=== PATIENT | male | born 1940 | race Caucasian/White ===

== ENCOUNTER → 2024-02-11 05:00 | Outpatient (REF) | payer MEDICARE, SELFPAY ==
[2024-02-11 09:13] LABS: Valproic Acid (Depakene) Level 16 ug/mL (50-100)
== END ==
LOC: OLS.SW 05:00
PROVIDERS: PCP Internal Medicine; Visit Provider Internal Medicine
DX: E03.9 Hypothyroidism, unspecified (principal); Z51.81 Encounter for therapeutic drug level monitoring
CPT/HCPCS: 36415; 80164; 84443

== ENCOUNTER 2024-02-22 03:42 | Emergency (ER) | payer MEDICARE, SELFPAY ==
[2024-02-22 03:43] VITALS: BP 124/50; PULSE 78; RESP 16; TEMP 36.6; O2SAT 94; BMI 25.2
--- NOTE | 2024-02-22 04:09 | CT_ITS ---
INDICATION: fall EXAMINATION: CT BRAIN - CT Head or Brain W/O Contrast Injection TECHNIQUE: Multiple axial images were obtained of the head without intravenous contrast. A radiation dose optimization technique was used for this scan. IV Contrast dosage and agent: None. RADIATION DOSAGE (If Supplied By Facility): CTDIvol = ( 44.99 ) mGy, DLP = ( 829.85 ) mGycm COMPARISON: No relevant prior comparison study available FINDINGS: BRAIN PARENCHYMA: No intra- or extra-axial hemorrhage. No evidence of acute infarct. No intracranial mass or mass effect. There is preservation of the dean/white matter interface. Posterior fossa structures are unremarkable. Patchy periventricular and deep white matter hypoattenuation is consistent with mild small vessel ischemic change. CSF SPACES: Proportional prominence of the ventricles and sulcal spaces is consistent with mild cerebral volume loss. No hydrocephalus. Basal cisterns are patent. CALVARIUM, SKULL BASE, PARANASAL SINUSES AND MASTOID AIR CELLS: Regional soft tissues and scalp unremarkable. Calvarium and skull base are intact. Paranasal sinuses are clear. Mastoid air cells are clear. No discrete lytic or blastic abnormalities. ORBITS: Both globes, extraocular muscles, optic nerves and retrobulbar fat appear unremarkable. CT/Brain/Head without Contrast IMPRESSION: No acute intracranial finding. Electronically Signed: Jim Al MD at 5:54 EDT ,
--- NOTE | 2024-02-22 04:10 | EDS_ITS ---
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 They found him assisted in his bed and assisted out, with his head down at the floor, and a couple of new skin tears on his left wrist and hand to go along with his other skin tears that are between a week and 2 old. Patient denies any fall. He denies having any pain right now or any other issues. Denies a headache. He has a tube which appears to be some type of drain in his right upper quadrant states he received it at [facility] and is not sure why. [facility] Medical History (Updated 02/22/24 @ 05:[address] Shiraz Sanches MD) Anxiety Ascites Atrial fibrillation CHF (congestive heart failure) CKD (chronic kidney disease) Dialysis AV fistula malfunction Social History Smoking Status: Never smoker ROS ROS ED Review of Systems ROS Unobtainable: due to encephalopathy Eyes Eyes: Denies change in vision or diplopia ENT ENT ED: Denies sore throat Cardiovascular Cardiovascular: Denies chest pain or palpitations Respiratory/Chest Respiratory/Chest: Denies cough or dyspnea Gastrointestinal Gastrointestinal: Denies abdominal pain, nausea or vomiting Musculoskeletal Musculoskeletal: Denies back pain or neck pain Integumentary Denies abscess or rash Neurologic Neurologic: Denies headache(s), paresthesias or weakness Psychiatric Psychiatric: Denies suicidal ideation or suicidal thoughts EXAM Physical Exam Const Vital Signs: 02/22/24 03:43 02/22/24 03:52 02/22/24 04:13 Temperature 97.9 F Temperature Source Temporal Pulse Rate 78 70 Respiratory Rate 16 16 Respiratory Effort Normal Blood Pressure 124/50 H 118/76 Blood Pressure Mean 74 90 Pulse Ox 94 Oxygen Delivery Method Room Air Room Air Positive well nourished and well developed General Appearance ED: well developed and NAD HEENT Reports moist mucous membranes HEENT Narrative: Minor abrasion that is scabbed on his frontal scalp unclear if this is acute or not, there are no other signs of acute trauma to the HEENT area. normocephalic and atraumatic Eyes PERRL and EOMs intact bilaterally Neck full ROM and supple Chest Wall Chest Narrative: Chronic deformity to the right sternoclavicular joint, no tenderness. Resp normal respiratory effort and clear to auscultation bilaterally Cardio regular rate and regular rhythm GI non-tender and non-distended GI Narrative: Drain tube sutured into right upper quadrant, site is benign, there is no discharge around the tube. Auscultation: normoactive bowel sounds Palpation: soft Back/Spine no CVA tenderness General Back: other FROM Extremity normal to inspection Extremity Narrative: Skin tears throughout both upper extremities of varying ages, only 1 on the left wrist and 1 on the left hand appear to be acute. No signs of any infection on any of them. Dressings noted. Full range of motion throughout all joints of all 4 extremities without any pain. AVF LUE good thrill and distal pulse. General Extremety ED: Negative for edema, pulses abnormal or tenderness General Extremity: Negative for edema or pulses abnormal Neuro CN's II-XII intact bilaterally and no sensory deficits noted [place] Coma Scale: document GCS findings Spontaneous Obeys Commands Confused 14 Sensorium / Orientation: awake, alert, oriented to person and orientation impaired; Negative for oriented to place or oriented to time Motor Exam: strength 5/5 throughout Psych Psych Narrative: flat affect; frustrated/angry that he is here in ED. Skin Rashes: no rashes MDM MDM MDM Narrative Medical decision making narrative: Not sure if this is a choley tube or what is going on, we do not have any records of what he has or why it is there, but his abdomen is benign so I do not think it needs emergent imaging right now it does not appear to be traumatized. The tube is not hooked up like a pneumothorax. I did perform CT imaging of his brain, given the fact that he had a history of fall, was found headfirst into the floor with the lower half of his body up in his bed, and he has an abrasion on the scalp, unknown if this is acute or not, but given that he is little disoriented I thought it appropriate to scan his head and rule out intracranial injury. I reviewed the images and the report which I agree with, it is negative for any acute. Basic labs are obtained and reviewed. These are similar to old. His skin tears were cleansed and dressed with bacitracin. Labs reviewed which show chronic kidney disease, he does not have any acute or emergent electrolyte disorder, and it is confirmed he is a dialysis patient. I do not think he needs any extremity imaging at this time, and is stable to go back to the long-term. Lab Data Attestation: I reviewed the patient's lab results. Labs: Laboratory Results - last 24 hr 02/22/24 05:15 WBC 9.1 RBC 3.93 L Hgb 11.7 L Hct 37.6 L MCV 95.7 H MCH 29.8 MCHC 31.1 L RDW Std Deviation 56.9 H RDW Coeff of Brad 16.2 H Plt Count 222 MPV 9.6 Immature Gran % (Auto) 0.200 Neut % (Auto) 72.4 H Lymph % (Auto) 12.6 L [place] % (Auto) 10.1 H Eos % (Auto) 3.9 Baso % (Auto) 0.8 Absolute Neuts (auto) 6.6 Absolute Lymphs (auto) 1.14 Nucleated RBC % 0 Sodium 131 L Potassium 4.4 Chloride 97 L Carbon Dioxide 25.0 Anion Gap 9 BUN 46 H Creatinine 5.47 H Estim Creat Clear Calc 10.25 Est GFR (MDRD) Af Amer 13 L Est GFR (MDRD) Non-Af 11 L BUN/Creatinine Ratio 8.4 L Glucose 100 Calcium 8.8 Radiography Diagnostic Testing: Clinical Impression(s) from Imaging Studies Brain CT 02/22/24 04:09 IMPRESSION: No acute intracranial finding. Electronically Signed: Jim Al MD at 5:54 EDT Reading Location ID and State: [address] [place] [address] Tel , Service support , Discharge Plan Triage Chief Complaint: Fall ED Provider: Shiraz Sanches Dx/Rx/DC Orders Clinical Impression: Accidental fall from bed, Closed head injury, Skin tear of left upper extremity, ESRD on dialysis Instructions: ED Head Injury (Adult) Primary Care Provider: Carlota Goodwin Referrals: Carlota Goodwin MD [Primary Care Provider] - 1-2 Days if not improving Disposition Disposition: [facility]
[2024-02-22 04:13] VITALS: BP 118/76; PULSE 70; RESP 16
[2024-02-22 05:26] LABS: Absolute Lymphocyte Count 1.14 X10^3/uL (0.83-4.51); Absolute Neutrophil Count 6.6 X10^3/uL (2.0-7.7); Basophil# 0.07 X10^3/uL; Basophil% 0.8 % (0-1); Eosinophil# 0.35 X10^3/uL; Eosinophils% 3.9 % (0-5); Hematocrit 37.6 % (40-54); Hemoglobin 11.7 g/dL (13.0-16.5); Lymphocyte # 1.14 X10^3/ul (0.83-4.51); Lymphocyte % 12.6 % (19-41); Mean Corp Hgb Conc 31.1 g/dL (32-36); Mean Corpuscular Hgb 29.8 pg (27.0-32.0); Mean Corpuscular Volume 95.7 fL (80-94); Mean Platelet Vol. 9.6 fl (6.2-12.0); Monocyte# 0.91 X10^3/uL; Monocyte% 10.1 % (0-10); NRBC Flagged by Analyzer 0 % (0-5); Neutrophil # 6.56 X10^3/uL (2.7-7.7); Neutrophil % 72.4 % (47-70); Platelet Count 222 K/mm3 (150-450); RBC Distribution Width CV 16.2 % (11.6-14.6); RBC Distribution Width SD 56.9 fl (35.1-43.9); Red Blood Count 3.93 M/mm3 (4.6-6.2); White Blood Count 9.1 K/mm3 (4.4-11.0)
[2024-02-22 05:46] LABS: Anion Gap 9 (5-15); BUN 46 mg/dL (7-18); BUN/Creat Ratio 8.4 RATIO (10-20); Calcium,Total 8.8 mg/dL (8.5-10.1); Chloride 97 mmol/L (98-107); Creatinine, Serum 5.47 mg/dL (0.70-1.30); EST Glomerular Filtration Rate 11 mL/min (>60); Est Glom Filt Rate - Afr Amer 13 mL/min (>60); Estimated Creatinine Clearance 10.25 ml/min; Glucose 100 mg/dL (74-106); Potassium 4.4 mmol/L (3.5-5.1); Sodium Level 131 mmol/L (136-145)
[2024-02-22 06:44] VITALS: BP 115/60; PULSE 75; RESP 18; TEMP 36.8; O2SAT 97
== END 2024-02-22 06:59 | disposition skilled nursing facility (03) ==
PROVIDERS: Emergency Provider Emergency Medicine; PCP Internal Medicine; Visit Provider Emergency Medicine
DX: S09.90XA Unspecified injury of head, initial encounter (principal); N18.6 End stage renal disease; I50.9 Heart failure, unspecified; I48.91 Unspecified atrial fibrillation; S61.412A Laceration without foreign body of left hand, initial encounter; Z99.2 Dependence on renal dialysis; S61.512A Laceration without foreign body of left wrist, initial encounter; X58.XXXA Exposure to other specified factors, initial encounter; Y92.129 Unspecified place in nursing home as the place of occurrence of the external cause
CPT/HCPCS: 70450; 80048; 85025; 99282

== ENCOUNTER 2024-02-25 20:34 | Emergency (ER) | payer MEDICARE, SELFPAY ==
[2024-02-25 20:36] VITALS: BP 119/51; PULSE 87; RESP 18; TEMP 36.1; O2SAT 95; BMI 26.5
--- NOTE | 2024-02-25 21:35 | EX.ED.DYSGE1 ---
HPI <JENNIFER Short - Last Filed: 02/25/24 22:13> History of Present Illness Chief Complaint: Other, Pain/Inj Narrative Narrative: Patient presenting today after pulling out his Choley tube this evening. He is presenting from [place] [facility], he became upset and pulled the tube out himself. When reviewing clinisync, this was placed due to bacterial peritonitis from acute cholecystitis on 12/05/2023. This was placed at [facility]. Patient has a history of dementia and is unable to tell me why the tube is in place. He does not have any acute complaints. [facility] <JENNIFER Short - Last Filed: 02/25/24 22:13> [facility] Medical History Anxiety Ascites Atrial fibrillation CHF (congestive heart failure) CKD (chronic kidney disease) Dialysis AV fistula malfunction Allergy/AdvReac Type Severity Reaction Status Date / Time No Known Allergies Allergy Verified 02/25/24 20:43 Social History Smoking Status: Never smoker ROS <JENNIFER Short - Last Filed: 02/25/24 22:13> ROS ED Constitutional Constitutional ED: Denies chills or fever(s) Cardiovascular Cardiovascular: Denies chest pain Respiratory/Chest Respiratory/Chest: Denies cough or dyspnea Gastrointestinal Gastrointestinal: Denies abdominal pain, nausea or vomiting Musculoskeletal Musculoskeletal: Denies arthralgias or myalgias Integumentary Denies rash Neurologic Neurologic: Denies weakness EXAM <JENNIFER Short Last Filed: 02/25/24 22:13> Physical Exam Const Vital Signs: 02/25/24 20:36 02/25/24 20:44 Temperature 97 F L Temperature Source Temporal Pulse Rate 87 Respiratory Rate 18 Respiratory Effort Normal Respiratory Pattern Normal Blood Pressure 119/51 L Blood Pressure Mean 73 Pulse Ox 95 Oxygen Delivery Method Room Air Positive well nourished, well developed and no apparent distress General Appearance ED: well developed HEENT Reports normocephalic and head/scalp atraumatic Mouth ED: Yes moist mucous membranes normal Eyes PERRL and EOMs intact bilaterally Neck full ROM and supple Chest Wall inspection of chest normal Resp normal respiratory effort and clear to auscultation bilaterally Cardio regular rate and regular rhythm GI soft to palpation, non-tender, non-distended and no masses GI Narrative: Small healing incision with small opening where the tube was in place to the right upper quadrant, no purulent discharge. Back/Spine normal ROM and normal to inspection Extremity normal to inspection and full ROM Neuro oriented x3, CN's II-XII intact bilaterally, moves all extremities, no focal motor deficits and no sensory deficits noted Sensorium / Orientation: awake and alert Psych mental status grossly normal and thought process normal Skin no rashes or lesions noted and no wounds <Dr. Reese Lema MD - Last Filed: 02/25/24 23:09> Physical Exam Const Vital Signs: 02/25/24 20:36 02/25/24 20:44 Temperature 97 F L Temperature Source Temporal Pulse Rate 87 Respiratory Rate 18 Respiratory Effort Normal Respiratory Pattern Normal Blood Pressure 119/51 L Blood Pressure Mean 73 Pulse Ox 95 Oxygen Delivery Method Room Air [facility] <JENNIFER Short - Last Filed: 02/25/24 22:13> [facility] Narrative Medical decision making narrative: Patient presenting after pulling out his percutaneous cholecystostomy tube this evening placed at [place] by IR. We do not have IR here, will have to transfer back to [place] for tube placement. Per family, patient was septic with cholecystitis, they did not remove his gallbladder due to concerns he would not survive the surgery and the tube was placed instead. He is well-appearing and in no acute distress at this time. I did speak with [facility] transfer freeman spur, he is accepted by ER physician, Dr. Bynum. He will be transferred in stable condition. <Dr. Reese Lema MD - Last Filed: 02/25/24 23:09> [facility] Narrative Medical decision making narrative: Patient presenting after pulling out his percutaneous cholecystostomy tube this evening placed at [place] by IR. We do not have IR here, will have to transfer back to [place] for tube placement. Per family, patient was septic with cholecystitis, they did not remove his gallbladder due to concerns he would not survive the surgery and the tube was placed instead. He is well-appearing and in no acute distress at this time. I did speak with [facility] transfer freeman spur, he is accepted by ER physician, Dr. Bynum. He will be transferred in stable condition. I have personally performed a face to face assessment of the patient and have reviewed the DANII Note. I performed a substantive portion of the visit including all aspects of the following. My thacker findings include: History is remarkable for displacement of medical housekeeper from gallbladder. Patient was septic and required transfer to [facility] 6 to 7 weeks ago. He had a colostomy tube placed. He either inadvertently pulled it out or when he rolled was caught under him and pulled out. According to family members this to remain in. Patient is very groggy. Apparently he received Valium and morphine prior to his transport here unable to obtain any type of history. Exam is fistula site noted. There is no drainage or redness noted. Patient's mental status is markedly depressed and exam is limited because of this. There is no guarding or peritoneal findings. Bowel sounds are diminished. Lungs reveal diminished breath sounds bilaterally. Patient vital signs are unremarkable. Medical Decision Making [facility] was contacted. He was accepted for transfer for insertion of new tube. Other additions or changes: [None] Discharge Plan Triage Chief Complaint: Other, Pain/Inj ED Midlevel Provider: Sindy Byers ED Provider: Reese Lema Dx/Rx/DC Orders Clinical Impression: Cholecystostomy tube dysfunction, Altered mental status, Cholelithiasis Primary Care Provider: Carlota Goodwin Referrals: Carlota Goodwin MD [Primary Care Provider] - Disposition Disposition: Acute Care Hospital Discharge Location: [facility]
[2024-02-25 22:36] VITALS: BP 111/51; PULSE 87; RESP 18; O2SAT 97
[2024-02-26] VITALS: BP 104/52; PULSE 87; RESP 18; O2SAT 96
[2024-02-26] MEDS: Atorvastatin Calcium 40 MG Tablet PO (00:12)
[2024-02-26] MEDS: traZODone 100 MG Tablet PO (00:12)
[2024-02-26] MEDS: Midodrine HCl 5 MG Tablet 10 MG PO (00:12)
[2024-02-26] MEDS: Pantoprazole Sodium 40 MG Tablet PO (00:12)
--- NOTE | 2024-02-26 00:25 | ED.RN ---
Attempted to give report to [facility]. No answer at this time.
[2024-02-26 03:32] VITALS: BP 94/46; PULSE 77; RESP 18; TEMP 36.4; O2SAT 95
[2024-02-26 05:00] VITALS: BP 107/67; PULSE 82; RESP 16; O2SAT 99
[2024-02-26] MEDS: diazePAM 2 MG Tablet PO (05:02)
[2024-02-26 06:37] VITALS: BP 99/35; PULSE 72; RESP 18; TEMP 36.9; O2SAT 93
== END 2024-02-26 06:48 | disposition short-term general hospital (02) ==
PROVIDERS: Emergency Provider Emergency Medicine; PCP Internal Medicine; Visit Provider Emergency Medicine
DX: T85.520A Displacement of bile duct prosthesis, initial encounter (principal); Z93.3 Colostomy status; I50.9 Heart failure, unspecified; F03.90 Unspecified dementia, unspecified severity, without behavioral disturbance, psychotic disturbance, mood disturbance, and anxiety; I48.91 Unspecified atrial fibrillation; K80.10 Calculus of gallbladder with chronic cholecystitis without obstruction; R41.82 Altered mental status, unspecified; F41.9 Anxiety disorder, unspecified; N18.9 Chronic kidney disease, unspecified; Z99.2 Dependence on renal dialysis
CPT/HCPCS: 99284; A4216

== ENCOUNTER → 2024-03-02 | Outpatient (REF) | payer MEDICARE, SELFPAY ==
[2024-03-02 08:31] LABS: Absolute Lymphocyte Count 1.13 X10^3/uL (0.83-4.51); Absolute Neutrophil Count 3.9 X10^3/uL (2.0-7.7); Basophil# 0.04 X10^3/uL; Basophil% 0.6 % (0-1); Eosinophil# 0.47 X10^3/uL; Eosinophils% 7.6 % (0-5); Hemoglobin 11.5 g/dL (13.0-16.5); Lymphocyte # 1.13 X10^3/ul (0.83-4.51); Lymphocyte % 18.3 % (19-41); Mean Corp Hgb Conc 31.1 g/dL (32-36); Mean Corpuscular Hgb 29.4 pg (27.0-32.0); Mean Corpuscular Volume 94.6 fL (80-94); Mean Platelet Vol. 9.9 fl (6.2-12.0); Monocyte# 0.61 X10^3/uL; Monocyte% 9.9 % (0-10); NRBC Flagged by Analyzer 0 % (0-5); Neutrophil # 3.92 X10^3/uL (2.7-7.7); Neutrophil % 63.3 % (47-70); Platelet Count 195 K/mm3 (150-450); RBC Distribution Width CV 16.9 % (11.6-14.6); RBC Distribution Width SD 58.4 fl (35.1-43.9); Red Blood Count 3.91 M/mm3 (4.6-6.2); White Blood Count 6.2 K/mm3 (4.4-11.0)
[2024-03-02 08:56] LABS: ALB/GLOB Ratio 0.6 RATIO (0.9-2.4); AST(SGOT) 20 U/L (15-37); Alanine Aminotransfer ALT/SGPT 14 U/L (16-61); Albumin, Serum 2.2 g/dL (3.2-5.0); Alkaline Phosphatase 120 U/L (45-117); Anion Gap 9 (5-15); BUN 49 mg/dL (7-18); BUN/Creat Ratio 9.1 RATIO (10-20); Calcium,Total 8.6 mg/dL (8.5-10.1); Chloride 99 mmol/L (98-107); EST Glomerular Filtration Rate 11 mL/min (>60); Est Glom Filt Rate - Afr Amer 13 mL/min (>60); Globulin 3.7 g/dL (2.2-4.2); Glucose 78 mg/dL (74-106); Potassium 3.5 mmol/L (3.5-5.1); Protein, Total 5.9 g/dL (6.4-8.2); Sodium Level 138 mmol/L (136-145)
[2024-03-02 18:24] LABS: Vitamin B12 934 pg/mL (211-911); Vitamin D,25 Hydroxy 63.4 ng/mL
== END ==
LOC: OLS.SW 05:00
PROVIDERS: PCP Internal Medicine; Visit Provider Internal Medicine
DX: Z02.2 Encounter for examination for admission to residential institution (principal)
CPT/HCPCS: 36415; 80053; 82306; 82607; 83735; 84443; 85025

== ENCOUNTER → 2024-03-03 | Outpatient (REF) | payer MEDICARE, SELFPAY ==
[2024-03-03 13:53] LABS: Prealbumin 10.3 mg/dL (20.0-40.0)
== END ==
LOC: OLS.SW 05:00
PROVIDERS: PCP Internal Medicine; Visit Provider Internal Medicine
DX: N18.6 End stage renal disease (principal); E43 Unspecified severe protein-calorie malnutrition
CPT/HCPCS: 36415; 84134

== ENCOUNTER → 2024-03-06 | Outpatient (REF) | payer MEDICARE, SELFPAY ==
[2024-03-06 09:26] LABS: Hematocrit 40.7 % (40-54); Hemoglobin 13.1 g/dL (13.0-16.5); Mean Corp Hgb Conc 32.2 g/dL (32-36); Mean Corpuscular Hgb 29.8 pg (27.0-32.0); Mean Corpuscular Volume 92.7 fL (80-94); Mean Platelet Vol. 10.9 fl (6.2-12.0); Platelet Count 200 K/mm3 (150-450); RBC Distribution Width SD 57.5 fl (35.1-43.9); Red Blood Count 4.39 M/mm3 (4.6-6.2); White Blood Count 7.2 K/mm3 (4.4-11.0)
[2024-03-06 09:55] LABS: ALB/GLOB Ratio 0.6 RATIO (0.9-2.4); AST(SGOT) 21 U/L (15-37); Alanine Aminotransfer ALT/SGPT 18 U/L (16-61); Albumin, Serum 2.6 g/dL (3.2-5.0); Alkaline Phosphatase 129 U/L (45-117); Anion Gap 13 (5-15); BUN 57 mg/dL (7-18); BUN/Creat Ratio 9.3 RATIO (10-20); Calcium,Total 8.9 mg/dL (8.5-10.1); Chloride 93 mmol/L (98-107); Creatinine, Serum 6.16 mg/dL (0.70-1.30); EST Glomerular Filtration Rate 9 mL/min (>60); Est Glom Filt Rate - Afr Amer 11 mL/min (>60); Globulin 4.1 g/dL (2.2-4.2); Glucose 57 mg/dL (74-106); Magnesium 2.2 mg/dL (1.6-2.6); Phosphorus 4.4 mg/dL (2.5-4.9); Potassium 4.1 mmol/L (3.5-5.1); Protein, Total 6.7 g/dL (6.4-8.2); Sodium Level 133 mmol/L (136-145)
== END ==
LOC: OLS.SW 05:50
PROVIDERS: PCP Internal Medicine; Referring Provider Internal Medicine; Visit Provider Internal Medicine
DX: I48.91 Unspecified atrial fibrillation (principal); N18.5 Chronic kidney disease, stage 5
CPT/HCPCS: 36415; 80053; 83735; 84100; 85027

== ENCOUNTER → 2024-03-14 | Outpatient (REF) | payer MEDICARE, SELFPAY ==
[2024-03-14 08:26] LABS: Hematocrit 43.1 % (40-54); Hemoglobin 13.8 g/dL (13.0-16.5); Mean Corpuscular Hgb 30.1 pg (27.0-32.0); Mean Corpuscular Volume 93.9 fL (80-94); Mean Platelet Vol. 10.6 fl (6.2-12.0); Platelet Count 151 K/mm3 (150-450); RBC Distribution Width CV 16.9 % (11.6-14.6); RBC Distribution Width SD 58.6 fl (35.1-43.9); Red Blood Count 4.59 M/mm3 (4.6-6.2); White Blood Count 5.4 K/mm3 (4.4-11.0)
[2024-03-14 09:11] LABS: ALB/GLOB Ratio 0.5 RATIO (0.9-2.4); AST(SGOT) 31 U/L (15-37); Alanine Aminotransfer ALT/SGPT 22 U/L (16-61); Albumin, Serum 2.4 g/dL (3.2-5.0); Alkaline Phosphatase 154 U/L (45-117); Anion Gap 11 (5-15); BUN 47 mg/dL (7-18); BUN/Creat Ratio 10.4 RATIO (10-20); Calcium,Total 9.2 mg/dL (8.5-10.1); Chloride 94 mmol/L (98-107); Creatinine, Serum 4.53 mg/dL (0.70-1.30); EST Glomerular Filtration Rate 13 mL/min (>60); Est Glom Filt Rate - Afr Amer 16 mL/min (>60); Globulin 4.5 g/dL (2.2-4.2); Glucose 73 mg/dL (74-106); Magnesium 2.1 mg/dL (1.6-2.6); Potassium 3.8 mmol/L (3.5-5.1); Protein, Total 6.9 g/dL (6.4-8.2); Sodium Level 130 mmol/L (136-145)
[2024-03-14 13:02] LABS: Phosphorus 3.9 mg/dL (2.5-4.9)
== END ==
LOC: OLS.SW 05:00
PROVIDERS: PCP Internal Medicine; Visit Provider Internal Medicine
DX: I50.9 Heart failure, unspecified (principal); N18.5 Chronic kidney disease, stage 5; K65.2 Spontaneous bacterial peritonitis
CPT/HCPCS: 36415; 80053; 83735; 84100; 85027

== ENCOUNTER → 2024-03-16 05:00 | Outpatient (REF) | payer MEDICARE, SELFPAY | LOC: OLS.SW 05:00 | PROVIDERS: PCP Internal Medicine; Visit Provider Internal Medicine | DX: R18.8 Other ascites (principal); K81.9 Cholecystitis, unspecified | CPT/HCPCS: 36415; 82140 ==

== ENCOUNTER → 2024-03-21 05:00 | Outpatient (REF) | payer MEDICARE, SELFPAY ==
[2024-03-21 09:18] LABS: Hematocrit 32.8 % (40-54); Hemoglobin 10.3 g/dL (13.0-16.5); Mean Corp Hgb Conc 31.4 g/dL (32-36); Mean Corpuscular Hgb 29.6 pg (27.0-32.0); Mean Corpuscular Volume 94.3 fL (80-94); Mean Platelet Vol. 10.9 fl (6.2-12.0); Platelet Count 161 K/mm3 (150-450); Red Blood Count 3.48 M/mm3 (4.6-6.2)
[2024-03-21 09:41] LABS: ALB/GLOB Ratio 0.6 RATIO (0.9-2.4); AST(SGOT) 31 U/L (15-37); Alanine Aminotransfer ALT/SGPT 25 U/L (16-61); Albumin, Serum 2.3 g/dL (3.2-5.0); Alkaline Phosphatase 161 U/L (45-117); Anion Gap 10 (5-15); BUN 77 mg/dL (7-18); BUN/Creat Ratio 15.9 RATIO (10-20); Chloride 95 mmol/L (98-107); Creatinine, Serum 4.83 mg/dL (0.70-1.30); EST Glomerular Filtration Rate 12 mL/min (>60); Est Glom Filt Rate - Afr Amer 15 mL/min (>60); Globulin 4.1 g/dL (2.2-4.2); Glucose 81 mg/dL (74-106); Phosphorus 3.9 mg/dL (2.5-4.9); Potassium 3.8 mmol/L (3.5-5.1); Protein, Total 6.4 g/dL (6.4-8.2); Sodium Level 130 mmol/L (136-145)
== END ==
LOC: OLS.SW 05:00
PROVIDERS: PCP Internal Medicine; Visit Provider Internal Medicine
DX: K65.2 Spontaneous bacterial peritonitis (principal); N18.5 Chronic kidney disease, stage 5; G93.40 Encephalopathy, unspecified
CPT/HCPCS: 36415; 80053; 83735; 84100; 85027

== ENCOUNTER → 2024-03-24 06:15 | Outpatient (REF) | payer MEDICARE, SELFPAY ==
[2024-03-24 08:56] LABS: Absolute Lymphocyte Count 0.88 X10^3/uL (0.83-4.51); Absolute Neutrophil Count 4.2 X10^3/uL (2.0-7.7); Basophil# 0.08 X10^3/uL; Basophil% 1.3 % (0-1); Eosinophil# 0.38 X10^3/uL; Eosinophils% 6.2 % (0-5); Hematocrit 31.4 % (40-54); Lymphocyte # 0.88 X10^3/ul (0.83-4.51); Lymphocyte % 14.4 % (19-41); Mean Corp Hgb Conc 31.8 g/dL (32-36); Mean Corpuscular Volume 94.3 fL (80-94); Mean Platelet Vol. 10.9 fl (6.2-12.0); Monocyte# 0.53 X10^3/uL; Monocyte% 8.7 % (0-10); NRBC Flagged by Analyzer 0 % (0-5); Neutrophil # 4.24 X10^3/uL (2.7-7.7); Neutrophil % 69.2 % (47-70); Platelet Count 178 K/mm3 (150-450); RBC Distribution Width SD 58.1 fl (35.1-43.9); Red Blood Count 3.33 M/mm3 (4.6-6.2); White Blood Count 6.1 K/mm3 (4.4-11.0)
== END ==
LOC: OLS.SW 06:15
PROVIDERS: PCP Internal Medicine; Referring Provider Internal Medicine; Visit Provider Internal Medicine
DX: R50.9 Fever, unspecified (principal); R53.83 Other fatigue
CPT/HCPCS: 36415; 85025

== ENCOUNTER → 2024-03-29 04:00 | Outpatient (REF) | payer MEDICARE, SELFPAY ==
[2024-03-29 08:41] LABS: Hemoglobin 10.8 g/dL (13.0-16.5); Mean Corp Hgb Conc 31.8 g/dL (32-36); Mean Corpuscular Volume 94.4 fL (80-94); Mean Platelet Vol. 10.6 fl (6.2-12.0); Platelet Count 158 K/mm3 (150-450); RBC Distribution Width SD 58.9 fl (35.1-43.9)
[2024-03-29 08:55] LABS: Anion Gap 9 (5-15); BUN 56 mg/dL (7-18); BUN/Creat Ratio 14.9 RATIO (10-20); Chloride 95 mmol/L (98-107); Creatinine, Serum 3.76 mg/dL (0.70-1.30); EST Glomerular Filtration Rate 17 mL/min (>60); Est Glom Filt Rate - Afr Amer 20 mL/min (>60); Glucose 84 mg/dL (74-106); Potassium 3.3 mmol/L (3.5-5.1); Sodium Level 133 mmol/L (136-145)
== END ==
LOC: OLS.SW 04:00
PROVIDERS: PCP Internal Medicine; Referring Provider Internal Medicine; Visit Provider Internal Medicine
DX: A41.9 Sepsis, unspecified organism (principal); K65.2 Spontaneous bacterial peritonitis; N18.5 Chronic kidney disease, stage 5; I25.10 Atherosclerotic heart disease of native coronary artery without angina pectoris; G93.40 Encephalopathy, unspecified
CPT/HCPCS: 36415; 80048; 82140; 85027

== ENCOUNTER → 2024-04-07 05:00 | Outpatient (REF) | payer MEDICARE, SELFPAY | LOC: OLS.SW 05:00 | PROVIDERS: PCP Internal Medicine; Visit Provider Internal Medicine | DX: A41.9 Sepsis, unspecified organism (principal); K65.2 Spontaneous bacterial peritonitis | CPT/HCPCS: 36415; 87040 ==